=== PATIENT | male | born 1955 | race Caucasian/White ===

== ENCOUNTER 2018-12-21 14:03 | Outpatient (CLI) | payer OTHER ==
--- NOTE | 2018-12-21 15:25 | XRAY Report ---
Reason: PAIN IN JOINT, SHOULDER Procedure Date: 12/21/2018 Accession Number: [id number] / [id number] Procedure: XR - Shoulder 2 View BILAT CPT Code: FULL RESULT: EXAM: BILATERAL SHOULDER RADIOGRAPHY EXAM DATE: 12/21/2018 03:08 PM. CLINICAL HISTORY: PAIN IN JOINT, SHOULDER. COMPARISON: None. TECHNIQUE: 2 views each. FINDINGS: Bones: Normal. No fracture or bone lesion. Joints: The glenohumeral and acromioclavicular joints are normal. Soft tissues: The visualized hemithorax is unremarkable. No soft tissue swelling. IMPRESSION: No fracture or dislocation and no overt degenerative changes. [facility]
== END 2018-12-21 14:04 | disposition home or self-care (01) ==
LOC: DI 14:03
PROVIDERS: ATTEND Family Medicine
DX: M25.519 Pain in unspecified shoulder (principal)

== ENCOUNTER 2020-09-17 09:04 | Outpatient (CLI) | payer BC, OTHER ==
[2020-09-17 12:27] LABS: BILIRUBIN,URINE NEGATIVE (NEGATIVE); GLUCOSE, URINE (UA) NEGATIVE (NEGATIVE); KETONES,URINE (UA) NEGATIVE (NEGATIVE); LEUKOCYTE ESTERASE, URINE NEGATIVE (NEGATIVE); NITRITE,URINE NEGATIVE (NEGATIVE); OCCULT BLOOD,URINE TRACE-LYSE (NEGATIVE); PH,URINE 6.5 PH (5.0-7.5); PROTEIN,URINE NEGATIVE (NEGATIVE); UROBILINOGEN,URINE 0.2 (NORMAL) E.U./dL (NORMAL)
[2020-09-17 12:46] LABS: BACTERIA,URINE Rare /HPF (None Seen); CASTS, URINE 0-2 WBC Casts /LPF; CLARITY,URINE CLEAR (CLEAR); RBC,URINE 0-5 /HPF (0-5); SQUAMOUS EPITHELIAL CELL,UR NONE SEEN (<= Few)
== END 2020-09-17 23:59 | disposition home or self-care (01) ==
LOC: LAB.R 09:04
PROVIDERS: ATTEND Internal Medicine
DX: R97.20 Elevated prostate specific antigen [PSA] (principal)
CPT/HCPCS: 81001; 87086

== ENCOUNTER 2020-12-06 14:51 | Outpatient (CLI) | payer BC ==
[2020-12-06 15:14] LABS: BILIRUBIN,URINE NEGATIVE (NEGATIVE); CLARITY,URINE CLEAR (CLEAR); GLUCOSE, URINE (UA) NEGATIVE (NEGATIVE); KETONES,URINE (UA) NEGATIVE (NEGATIVE); LEUKOCYTE ESTERASE, URINE NEGATIVE (NEGATIVE); NITRITE,URINE NEGATIVE (NEGATIVE); OCCULT BLOOD,URINE MODERATE (NEGATIVE); PROTEIN,URINE NEGATIVE (NEGATIVE); UROBILINOGEN,URINE 0.2 (NORMAL) E.U./dL (NORMAL)
[2020-12-06 15:24] LABS: BACTERIA,URINE None Seen /HPF (None Seen); SQUAMOUS EPITHELIAL CELL,UR NONE SEEN (<= Few); WBC,URINE 0-3 /HPF (0-3)
[2020-12-06 15:52] LABS: PSA FREE 0.18 ng/mL (0.16-2.81)
[2020-12-06 15:53] LABS: PSA TOTAL 0.76 ng/mL (0.000-2.000)
== END 2020-12-06 14:52 | disposition home or self-care (01) ==
LOC: LAB 14:51
PROVIDERS: ATTEND Internal Medicine
DX: R97.20 Elevated prostate specific antigen [PSA] (principal)
CPT/HCPCS: 36415; 81001; 84153; 84154; 87086

== ENCOUNTER 2022-02-07 08:00 | Outpatient (CLI) | payer BC | END 2022-02-07 23:59 | disposition home or self-care (01) | LOC: LAB.N 08:00 | PROVIDERS: ATTEND Physician Assistant | DX: R05.9 Cough, unspecified (principal); Z20.822 Contact with and (suspected) exposure to COVID-19 ==